=== PATIENT | male | born 1960 | race Two or more races ===

== ENCOUNTER 2024-02-19 13:28 | Emergency (ER) | payer MEDICARE, MEDICAID ==
[~2024-02-19] VITALS: Ht 165.1 cm; Wt 109.0 kg
[2024-02-19 14:07] VITALS: PULSE 94; RESP 20; TEMP 98.3; O2SAT 96
[2024-02-19] MEDS: HYDROCODONE/ACETAMINOPHEN 5/325MG TABLET PO ONE (15:37)
== END 2024-02-19 17:00 | disposition home or self-care (01) ==
LOC: ER 13:28
DX: M79.605 Pain in left leg (principal); E11.9 Type 2 diabetes mellitus without complications; G89.18 Other acute postprocedural pain
CPT/HCPCS: 99283

== ENCOUNTER 2025-07-18 10:08 | Emergency (ER) | payer MEDICARE, MEDICAID ==
[~2025-07-18] VITALS: Ht 165.1 cm; Wt 108.0 kg
[~2025-07-18 10:08] MED LIST: CEPH500C2 MT; COR12 PO; FURO-151 MT; LISI20TA31 PO; LORA10TA7 PO; RIVA20TA PO; SPIR25TA6 PO; TAMS-54 PO
[2025-07-18 10:22] VITALS: O2SAT 99
[2025-07-18 11:05] LABS: BASOPHILS % 0.7 % (0.0-2.0); EOSINOPHILS % 0.2 % (0.0-5.0); HEMATOCRIT. 48.5 % (42.0-52.0); HEMOGLOBIN. 15.2 g/dL (14.0-18.0); LYMPHOCYTES % 9.4 % (20.0-50.0); MEAN PLATELET VOLUME 10.3 fl (7.4-10.4); MONOCYTES % 10.1 % (2.0-8.0); NEUTROPHILS % 79.6 % (40.0-76.0); PLATELET 117 x1000/uL (130-400); RED BLOOD CELL COUNT 5.66 mill/uL (4.7-6.1); RED CELL DISTRIBUTION WIDTH 19.5 % (11.6-14.6)
[2025-07-18 11:31] LABS: UREA NITROGEN BLOOD 31.0 mg/dL (9-23)
[2025-07-18 11:37] LABS: CREATININE 2.3 mg/dL (0.6-1.3)
[2025-07-18] MEDS ORDERED: MUPI15CR11 TP (13:27)
[2025-07-18 14:02] VITALS: BP 155/80; PULSE 62; RESP 16; TEMP 37.1; O2SAT 99
== END 2025-07-18 14:10 | disposition home or self-care (01) ==
LOC: ER 10:08
DX: N43.3 Hydrocele, unspecified (principal); N17.9 Acute kidney failure, unspecified; I10 Essential (primary) hypertension; E11.9 Type 2 diabetes mellitus without complications; Z79.899 Other long term (current) drug therapy; Z86.73 Personal history of transient ischemic attack (TIA), and cerebral infarction without residual deficits
CPT/HCPCS: 36415; 76870; 80048; 85025; 86592; 93976; 99284

== ENCOUNTER 2025-07-26 17:12 | Emergency (ER) | payer MEDICARE, MEDICAID ==
[~2025-07-26] VITALS: Ht 165.1 cm; Wt 105.0 kg
[~2025-07-26 17:12] MED LIST changes: +MUPI15CR11 TP
[2025-07-26 17:23] VITALS: O2SAT 100
[2025-07-26 20:00] LABS: CREATININE 2.1 mg/dL (0.6-1.3); UREA NITROGEN BLOOD 15 mg/dL (9-23)
[2025-07-26 20:02] LABS: ASPARTATE AMINOTRANSFERASE 25 IU/L (<34); BILIRUBIN DIRECT 0.1 mg/dL (<=3.0); BILIRUBIN TOTAL 0.5 mg/dL (0.1-1.0); PROTEIN TOTAL 7.0 g/dL (6.0-8.3)
[2025-07-26 20:15] LABS: HEMATOCRIT. 50.9 % (42.0-52.0); HEMOGLOBIN. 15.7 g/dL (14.0-18.0); MEAN PLATELET VOLUME 10.7 fl (7.4-10.4); PLATELET 72 x1000/uL (130-400); RED BLOOD CELL COUNT 5.75 mill/uL (4.7-6.1); RED CELL DISTRIBUTION WIDTH 18.9 % (11.6-14.6)
[2025-07-26 20:50] LABS: BAND% 2.0 % (1.0-6.0); EOSINOPHILS % MANUAL 1.0 % (0.0-5.0); LYMPHOCYTES % MANUAL 23.0 % (20.0-50.0); MONOCYTES % MANUAL 7.0 % (2.0-8.0); NEUTROPHILS % MANUAL 67.0 % (45.0-75.0); PLATELET ESTIMATE DECREASED
[2025-07-26 21:26] LABS: CLARITY URINE CLEAR (CLEAR); COLOR URINE YELLOW (YELLOW); GLUCOSE URINE 2+ (NEGATIVE); KETONES URINE NEGATIVE (NEGATIVE); LEUKOCYTE ESTERASE URINE NEGATIVE (NEGATIVE); NITRITE URINE NEGATIVE (NEGATIVE); OCCULT BLOOD URINE NEGATIVE (NEGATIVE); PH URINE 5.0 (4.5-8.0); PROTEIN URINE 2+ (NEGATIVE); SPECIFIC GRAVITY URINE 1.013 (1.005-1.030); UROBILINOGEN URINE 0.2 E.U./dL (0.2-1.0)
[2025-07-26] MEDS ORDERED: MAGN296S91 MT (22:29)
[2025-07-26] MEDS ORDERED: SENN-215 MT (22:29)
[2025-07-26 22:35] VITALS: BP 159/54; PULSE 85; RESP 18; TEMP 37.1; O2SAT 97
[2025-07-26 22:45] LABS: BACTERIA URINE 1+; RBC URINE NONE SEEN /hpf (0-2); SQUAMOUS EPITHELIAL CELL URINE FEW /lpf (RARE/1+); WBC URINE 0-2 /hpf (0-2)
== END 2025-07-26 22:40 | disposition home or self-care (01) ==
LOC: ER 17:12
DX: K59.00 Constipation, unspecified (principal); I10 Essential (primary) hypertension; E11.9 Type 2 diabetes mellitus without complications; F19.90 Other psychoactive substance use, unspecified, uncomplicated; Z79.899 Other long term (current) drug therapy; Z86.73 Personal history of transient ischemic attack (TIA), and cerebral infarction without residual deficits; Z96.641 Presence of right artificial hip joint
CPT/HCPCS: 36415; 74018; 74176; 80048; 80076; 81003; 82270; 83735; 85025; 99284